=== PATIENT | female | born 1990 | race African-American/Black ===

== ENCOUNTER 2017-11-29 17:47 | Emergency (ER) | payer OTHER, MEDICAID ==
[~2017-11-29] VITALS: Ht 170.2 cm; Wt 83.0 kg
[2017-11-29 18:59] LABS: INFLUENZA B ANTIGEN None Detected (None Detect)
[2017-11-29] MEDS ORDERED: PROAIR HFA8.5 GM INH (19:20)
[2017-11-29] MEDS ORDERED: TESSALON PERLE100 MG PO (19:20)
[2017-11-29] MEDS ORDERED: TAMIFLU75 MG PO (19:20)
[2017-11-29 19:43] VITALS: BP 110/71
--- NOTE | 2017-11-30 15:52 | EKG ---
[place] [address] ELECTROCARDIOGRAM REPORT Name: SHAWNEE MARTINEZ Room: [facility]#: [id number] Admission: 11/29/17 Attend Phys: Discharge: 11/29/17 Date of : 86 Report #: [id number] THIS REPORT FOR: //name// [facility] ED Test Date: 2017-11-29 Test Time: 18:03:45 Pat Name: SHAWNEE MARTINEZ Department: Room: Gender: F Aging Room Hand: Heena CHACON : 1990 Requested By: Kerrie Villafuerte Order Number: [id number] MD: Roderick Spence Measurements Intervals [place] Rate: 92 P: 63 OR: 129 QRS: 59 QRSD: 81 T: 20 QT: 345 QTc: 427 Interpretive Statements Sinus rhythm No previous ECG available for comparison Electronically Signed On 11-30-2017 15:52:08 [employer] by Roderick Spence [email or web address] <ELECTRONICALLY SIGNED> By: Roderick Spence MD, LOCATED WITHIN [facility] 11/30/17 1552 1803 1803 Roderick Spence MD, FACC /EPI
== END 2017-11-29 19:44 | disposition home or self-care (01) ==
LOC: M.ERS 17:47
PROVIDERS: Nurse Practitioner Family
DX: J09.X2 Influenza due to identified novel influenza A virus with other respiratory manifestations (principal)

== ENCOUNTER 2018-01-14 01:53 | Emergency (ER) | payer MEDICAID ==
[~2018-01-14] VITALS: Ht 170.2 cm; Wt 81.7 kg
[~2018-01-14 01:53] MED LIST: PROAIR HFA8.5 GM INH; TAMIFLU75 MG PO; TESSALON PERLE100 MG PO
[2018-01-14 02:29] LABS: ABSOLUTE BASOPHILS 0.1 thou/uL (0.0-0.2); ABSOLUTE EOSINOPHILS 0.2 thou/uL (0.0-0.7); ABSOLUTE LYMPHOCYTES 3.7 thou/uL (0.8-5.3); ABSOLUTE MONOCYTES 0.6 thou/uL (0.0-1.2); ABSOLUTE NEUTROPHILS 5.5 thou/uL (1.6-8.1); BASOPHILS 0.7 %; EOSINOPHILS 1.8 %; HEMATOCRIT 41.5 % (37.0-47.0); HEMOGLOBIN 14.4 gm/dL (12.0-15.0); LYMPHOCYTES 36.7 %; MCH 27.2 pg (26.0-34.0); MCHC 34.6 g/dL (28.0-37.0); MCV 78.5 fL (80.0-100.0); MONOCYTES 6.2 %; MPV 8.6 fl. (7.2-11.1); NUCLEATED RBCS 0 /100WBC; PLATELET COUNT* 293 thou/uL (150-400); POLYS 54.6 %; RBC 5.28 mil/uL (4.20-5.00); RDW-CV 17.2 % (10.5-14.5)
[2018-01-14 02:41] LABS: ANION GAP 11 mmol/L (7-16); BUN 8 mg/dL (7-18); CALCIUM 9.6 mg/dL (8.5-10.1); CHLORIDE 104 mmol/L (98-107); CO2 28 mmol/L (21-32); CREATININE 0.8 mg/dL (0.6-1.3); GLUCOSE 88 mg/dL (70-99); POTASSIUM 3.3 mmol/L (3.5-5.1); SODIUM 143 mmol/L (136-145)
[2018-01-14 02:45] LABS: APTT 26.7 Seconds (25.0-31.3); INR 1.1; PROTIME 10.6 Seconds (9.20-11.50)
[2018-01-14 03:00] LABS: ALBUMIN 4.4 g/dL (3.4-5.0); ALKALINE PHOSPHATASE 69 U/L (46-116); CK-MB MASS < 0.5 ng/mL (<0.5-3.6); LIPASE 80 U/L (73-393); MAGNESIUM 2.2 mg/dL (1.8-2.4); NT-PRO BRAIN NAT PEPTIDE < 5 pg/mL (<300); SGOT 10 U/L (15-37); SGPT 16 U/L (30-65); TOTAL BILIRUBIN 0.4 mg/dL (<0.1-1.0); TOTAL PROTEIN 8.8 g/dL (6.4-8.2); TROPONIN-I LEVEL <0.06 ng/mL (<0.06)
[2018-01-14 03:15] VITALS: BP 106/65
--- NOTE | 2018-01-14 15:58 | EKG ---
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1990 Requested By: Doug Sun Order Number: [id number] MD: Roderick Spence Measurements Intervals [place] Rate: 86 P: 49 [place]: 145 QRS: 49 QRSD: 90 T: 6 QT: 361 QTc: 437 Interpretive Statements Sinus rhythm Low voltage, precordial leads Borderline T abnormalities, anterior leads Compared to ECG 11/29/2017 18:03:45 Low QRS voltage now present T-wave abnormality now present Electronically Signed On 01-14-2018 15:58:01 CDT by Roderick Spence [email or web address] <ELECTRONICALLY SIGNED> By: Roderick Spence MD, [facility] 01/14/18 1558 0200 0200 Roderick Spence MD, [facility] /EPI
== END 2018-01-14 03:15 | disposition home or self-care (01) ==
LOC: M.ERS 01:53
PROVIDERS: Family Medicine
DX: R07.9 Chest pain, unspecified (principal); R55 Syncope and collapse